=== PATIENT | male | born 1985 | race Caucasian/White ===

== ENCOUNTER 2021-05-20 20:16 | Inpatient (IN) | payer SELFPAY ==
[2021-05-20] MEDS ORDERED: ONDANSETRON 4 MG/2 ML VIAL IVPUSH ONE (21:08)
[2021-05-20] MEDS ORDERED: SODIUM CHLORIDE 1,000 ML IV STA (21:08)
[2021-05-20] MEDS ORDERED: morphine CARPU-JECT 4 MG/1 ML DISP.SYRIN IVPUSH ONE (21:08)
[2021-05-20] MEDS ORDERED: morphine SULFATE 4 MG/ML VIAL ONE (22:26)
[2021-05-20] MEDS ORDERED: ONDANSETRON 4 MG/2 ML VIAL ONE (22:26)
[2021-05-20 22:59] LABS: BASO % 0.5 % (0-2.0); EOS % 1.2 % (0-4.5); HEMATOCRIT 42.2 % (35.4-49); HEMOGLOBIN 15.1 GM/dL (11.7-16.9); MCH 29.2 pg (25.7-33.7); MCHC 35.9 g/dl (32.0-35.9); MEAN CELL VOLUME 81.5 fl (80-96); MEAN PLT VOLUME 7.8 fl (7.5-11.1); MONO % 5.5 % (3.8-10.2); NEUT % 82.8 % (42.8-82.8); PLATELET COUNT 247 10^3/uL (134-434); RBC 5.18 M/mm3 (4.00-5.60); RDW 13.8 % (11.9-15.9)
[2021-05-20 23:09] LABS: EPI CELLS 2 /uL (0-25.1); HYALINE CASTS 0 /uL (0-3.1); PH,URINE 8.5 (5.0-8.0); URINE APPEARANCE CLEAR; URINE BACTERIA 2 /uL (0-1359); URINE BILIRUBIN NEGATIVE (NEGATIVE); URINE COLOR YELLOW; URINE GLUCOSE (UA) 3+ (NEGATIVE); URINE KETONE TRACE (NEGATIVE); URINE LEUK ESTERASE NEGATIVE (NEGATIVE); URINE NITRITE NEGATIVE (NEGATIVE); URINE PROTEIN 1+ (NEGATIVE); URINE RBC 2 /uL (0-23.9); URINE WBC 1 /uL (0-25.8)
[2021-05-20 23:20] LABS: CHLORIDE 96 mmol/L (98-107); SODIUM 133 mmol/L (136-145)
[2021-05-20 23:22] LABS: CALCIUM 8.1 mg/dL (8.5-10.1)
[2021-05-20 23:23] LABS: ALBUMIN 3.6 g/dl (3.4-5.0); ANION GAP 8 MMOL/L (8-16); CO2 30 mmol/L (21-32); GLUCOSE,RANDOM 375 mg/dL (74-106); LIPASE 627 U/L (73-393)
[2021-05-20 23:26] LABS: CREATININE 0.7 mg/dL (0.55-1.3)
[2021-05-20 23:27] LABS: BILIRUBIN,TOTAL 1.1 mg/dL (0.2-1)
[2021-05-20 23:28] LABS: ALK PHOS 233 U/L (45-117)
[2021-05-20 23:43] LABS: BLOOD UREA NITROGEN 9.8 mg/dL (7-18); TOT PROT 7.2 g/dl (6.4-8.2)
[2021-05-21] MEDS ORDERED: SODIUM CHLORIDE 1,000 ML IV STA (00:58)
[2021-05-21] MEDS ORDERED: morphine CARPU-JECT 4 MG/1 ML DISP.SYRIN IVPUSH ONE (01:04)
[2021-05-21] MEDS ORDERED: SODIUM CHLORIDE 1,000 ML IV SCH (01:15)
[2021-05-21] MEDS ORDERED: DEXTROSE 5%-NORMAL SALINE 1,000 ML IV SCH (02:30)
[2021-05-21] MEDS: INSULIN REGULAR 100 UNITS in SODIUM CHLORIDE 99 ML IVPB SCH (03:10)
[2021-05-21] MEDS ORDERED: morphine SULFATE 4 MG/ML VIAL ONE (03:22)
[2021-05-21 07:21] LABS: BASO % 0.3 % (0-2.0); EOS % 0.5 % (0-4.5); HEMATOCRIT 39.7 % (35.4-49); HEMOGLOBIN 13.6 GM/dL (11.7-16.9); LYMPH % 8.1 % (8-40); MCH 28.1 pg (25.7-33.7); MCHC 34.2 g/dl (32.0-35.9); MEAN CELL VOLUME 82.2 fl (80-96); MEAN PLT VOLUME 8.6 fl (7.5-11.1); MONO % 5.5 % (3.8-10.2); NEUT % 85.6 % (42.8-82.8); PLATELET COUNT 219 10^3/uL (134-434); RBC 4.84 M/mm3 (4.00-5.60); RDW 13.9 % (11.9-15.9)
[2021-05-21 07:37] LABS: MAGNESIUM 1.8 mg/dL (1.8-2.4)
[2021-05-21 07:38] LABS: PHOSPHOROUS 2.6 mg/dL (2.5-4.9)
[2021-05-21 08:56] LABS: CALCIUM 8.5 mg/dL (8.5-10.1)
[2021-05-21 08:57] LABS: ALBUMIN 3.4 g/dl (3.4-5.0); BLOOD UREA NITROGEN 7.3 mg/dL (7-18)
[2021-05-21 09:00] LABS: CREATININE 0.6 mg/dL (0.55-1.3)
[2021-05-21 09:02] LABS: BILIRUBIN,TOTAL 1.2 mg/dL (0.2-1); TOT PROT 6.6 g/dl (6.4-8.2)
[2021-05-21] MEDS: ENOXAPARIN NA (PORCINE) 40 MG/0.4 ML DISP.SYRIN SQ SCH (10:11)
[2021-05-21] MEDS: MUPIROCIN 2% TOPICAL OINTMENT FOR DECOLONIZATION NS SCH ×2 (11:10→21:48)
[2021-05-21 11:49] VITALS: BMI 32.4
[2021-05-21] MEDS ORDERED: REMDESIVIR 200 MG in SODIUM CHLORIDE 250 ML IVPB ONE (15:00)
[2021-05-21] MEDS: DEXTROSE 5%-LACTATED RINGERS 1,000 ML IV SCH (16:39)
[2021-05-21] MEDS: CHLORHEXIDINE GLUCONATE 4% CLEANSER FOR DECOLONIZATION TP SCH (21:49)
[2021-05-22] MEDS: DEXTROSE 5%-LACTATED RINGERS 1,000 ML IV SCH (02:07)
[2021-05-22] MEDS: GEMFIBROZIL 600 MG TABLET (FP) PO SCH ×2 (05:59→16:42)
[2021-05-22 07:00] LABS: BASO % 0.5 % (0-2.0); EOS % 3.7 % (0-4.5); HEMATOCRIT 39.7 % (35.4-49); HEMOGLOBIN 13.4 GM/dL (11.7-16.9); LYMPH % 18.8 % (8-40); MCHC 33.9 g/dl (32.0-35.9); MEAN CELL VOLUME 82.8 fl (80-96); MEAN PLT VOLUME 8.3 fl (7.5-11.1); MONO % 5.4 % (3.8-10.2); NEUT % 71.6 % (42.8-82.8); PLATELET COUNT 210 10^3/uL (134-434); RBC 4.79 M/mm3 (4.00-5.60); RDW 13.9 % (11.9-15.9); WHITE BLOOD COUNT 8.9 K/mm3 (4.0-10.0)
[2021-05-22 07:16] LABS: CALCIUM 8.7 mg/dL (8.5-10.1)
[2021-05-22 07:17] LABS: BLOOD UREA NITROGEN 8.4 mg/dL (7-18); MAGNESIUM 2.1 mg/dL (1.8-2.4)
[2021-05-22 07:19] LABS: CREATININE 0.6 mg/dL (0.55-1.3); PHOSPHOROUS 2.7 mg/dL (2.5-4.9)
[2021-05-22 07:21] LABS: BILIRUBIN,TOTAL 1.2 mg/dL (0.2-1); TOT PROT 6.2 g/dl (6.4-8.2)
[2021-05-22] MEDS: ENOXAPARIN NA (PORCINE) 40 MG/0.4 ML DISP.SYRIN SQ SCH (09:18)
[2021-05-22] MEDS ORDERED: INSULIN (LEVEMIR) 100 UNITS/ML UNITS SQ ONE (10:07)
[2021-05-22] MEDS: INSULIN REGULAR 100 UNITS in SODIUM CHLORIDE 99 ML IVPB SCH (10:16)
[2021-05-22] MEDS: MUPIROCIN 2% TOPICAL OINTMENT FOR DECOLONIZATION NS SCH ×2 (10:44→20:59)
[2021-05-22] MEDS: INSULIN SLIDING SCALE (NOVOLOG) 1 VIAL SQ SCH ×3 (12:05→20:59)
[2021-05-22] MEDS: REMDESIVIR 100 MG in SODIUM CHLORIDE 250 ML IVPB SCH (14:42)
[2021-05-22] MEDS: CHLORHEXIDINE GLUCONATE 4% CLEANSER FOR DECOLONIZATION TP SCH (20:59)
[2021-05-23] MEDS: GEMFIBROZIL 600 MG TABLET (FP) PO SCH ×2 (06:14→17:49)
[2021-05-23] MEDS: INSULIN SLIDING SCALE (NOVOLOG) 1 VIAL SQ SCH ×4 (06:20→21:36)
[2021-05-23 07:30] LABS: CALCIUM 8.5 mg/dL (8.5-10.1)
[2021-05-23 07:31] LABS: BLOOD UREA NITROGEN 12.4 mg/dL (7-18); MAGNESIUM 1.9 mg/dL (1.8-2.4)
[2021-05-23 07:34] LABS: CREATININE 0.8 mg/dL (0.55-1.3); PHOSPHOROUS 3.4 mg/dL (2.5-4.9)
[2021-05-23] MEDS: ENOXAPARIN NA (PORCINE) 40 MG/0.4 ML DISP.SYRIN SQ SCH (09:55)
[2021-05-23] MEDS: MUPIROCIN 2% TOPICAL OINTMENT FOR DECOLONIZATION NS SCH ×2 (09:57→21:37)
[2021-05-23] MEDS ORDERED: DEXTROSE 50%-WATER - 25 GM/50 ML VIAL IVPUSH PRN (11:17)
[2021-05-23] MEDS: REMDESIVIR 100 MG in SODIUM CHLORIDE 250 ML IVPB SCH (14:16)
[2021-05-23] MEDS: CHLORHEXIDINE GLUCONATE 4% CLEANSER FOR DECOLONIZATION TP SCH (21:38)
[2021-05-23] MEDS ORDERED: INSULIN (LEVEMIR) 100 UNITS/ML UNITS SQ SCH (22:00)
[2021-05-24] MEDS: GEMFIBROZIL 600 MG TABLET (FP) PO SCH ×2 (06:09→17:14)
[2021-05-24] MEDS: INSULIN SLIDING SCALE (NOVOLOG) 1 VIAL SQ SCH ×4 (06:09→21:20)
[2021-05-24 07:48] LABS: CALCIUM 8.6 mg/dL (8.5-10.1)
[2021-05-24 07:50] LABS: BLOOD UREA NITROGEN 14.3 mg/dL (7-18)
[2021-05-24 07:53] LABS: CREATININE 0.7 mg/dL (0.55-1.3)
[2021-05-24] MEDS: MUPIROCIN 2% TOPICAL OINTMENT FOR DECOLONIZATION NS SCH ×2 (10:02→21:20)
[2021-05-24] MEDS: ENOXAPARIN NA (PORCINE) 40 MG/0.4 ML DISP.SYRIN SQ SCH (10:02)
[2021-05-24] MEDS ORDERED: INSULIN (LEVEMIR) 100 UNITS/ML UNITS SQ SCH (12:16)
[2021-05-24] MEDS: CHLORHEXIDINE GLUCONATE 4% CLEANSER FOR DECOLONIZATION TP SCH (21:20)
[2021-05-25] MEDS: GEMFIBROZIL 600 MG TABLET (FP) PO SCH ×2 (06:05→17:06)
[2021-05-25] MEDS: INSULIN SLIDING SCALE (NOVOLOG) 1 VIAL SQ SCH ×3 (06:06→17:05)
[2021-05-25 07:05] VITALS: PULSE 76
[2021-05-25 08:47] LABS: CALCIUM 8.7 mg/dL (8.5-10.1)
[2021-05-25 08:50] LABS: CREATININE 0.7 mg/dL (0.55-1.3); MAGNESIUM 1.9 mg/dL (1.8-2.4)
[2021-05-25 08:51] LABS: PHOSPHOROUS 3.9 mg/dL (2.5-4.9)
[2021-05-25 08:54] LABS: BLOOD UREA NITROGEN 12.5 mg/dL (7-18)
[2021-05-25] MEDS ORDERED: MUPIROCIN 2% TOPICAL OINTMENT FOR DECOLONIZATION NS SCH (10:00)
[2021-05-25] MEDS ORDERED: ENOXAPARIN NA (PORCINE) 40 MG/0.4 ML DISP.SYRIN SQ SCH (10:00)
[2021-05-25] MEDS ORDERED: INSULIN (NOVOLOG) ASPART 100 UNITS/ML 10ML VIAL ONE (10:31)
[2021-05-25 14:48] VITALS: BP 144/87; TEMP 98.5
[2021-05-25] MEDS ORDERED: CHLORHEXIDINE GLUCONATE 4% CLEANSER FOR DECOLONIZATION TP SCH (22:00)
== END 2021-05-25 18:52 | disposition home or self-care (01) | DRG 282 ==
LOC: JER 20:16 → JERBED 05-21 02:55 → JICU 05-21 08:23 → J6S 05-24 22:26
PROVIDERS: ADMIT Internal Medicine Pulmonary Disease; ATTEND Internal Medicine
PROC: XW033E5 Introduction of Remdesivir Anti-infective into Peripheral Vein, Percutaneous Approach, New Technology Group 5 (ICD-10-PCS; principal; 2021-05-21)
DX: K85.80 Other acute pancreatitis without necrosis or infection (principal); U07.1 COVID-19; E11.65 Type 2 diabetes mellitus with hyperglycemia; E78.1 Pure hyperglyceridemia; E78.5 Hyperlipidemia, unspecified
CPT/HCPCS: 36415; 71046-TC-FY; 74177-TC; 76705-TC; 80048; 80053; 81003; 82150; 82962; 83036; 83690; 83735; 84100; 84478; 84484; 85025; 85027; 85379; 86140; 86480; 87086; 93005; 93010; 94010; 99285-25; C9399; C9803; U0003; U0005